=== PATIENT | female | born 1990 | race Caucasian/White ===

== ENCOUNTER 2017-07-02 17:34 | Emergency (ER) | payer BC ==
[2017-07-02 17:38] VITALS: BP 112/73; BMI 34.1
--- NOTE | 2017-07-02 17:50 | DR.GENAD ---
HPI - PCP Primary Care Physician: shirin - HPI Comment HPI Comment: PATIENT TWISTED ANKLE ON HER PORCH AT HOME. DIFFICULTY BEARING WEIGHT. - Complaint/Symptoms Chief Complaint Doctors Comments: RIGHT ANKLE PAIN FOR SEVERAL HOURS DUE TO INJURY. Chief Complaint:: patient steped off her porch today and twisted her right ankle. - Nurses notes reviewed Nurses Notes Review: Yes - Source History Provided: Patient - Mode of Arrival Mode of Arrival: Ambulatory - Timing Onset of Chief Complaint: 07/02/17 Came on: Suddenly - Duration Duration: Constant Duration: Hours - Severity Severity: Moderate PMH - PMH Past Medical History: No Past Surgical History: No - Family History History of Family Medical Conditions: No - Social History Does patient currently use any type of tobacco product: No Have you used tobacco products in the last 12 months: No Type of Tobacco Use: None Does any household member use tobacco: Yes Alcohol Use: Occasionally Do you use any recreational Drugs:: No Lives With: Family Lives Where: Home - infectious screening In the last 2 months have you had wt loss of >10#?: NO Have you had fever, night sweats or hemotysis?: No Have you traveled outside the country in the last 6 months?: No Isolation: Standard ROS - Review of Systems Constitutional: No Symptoms Reported Eyes: No Symptoms Reported ENTM: No Symptoms Reported Respiratoy: No Symptoms Reported Cardiovascular: No Symptoms Reported Gastrointestinal/Abdominal: No Symptoms Reported Genitourinary: No Symptoms Reported Neurological: No Symptoms Reported Musculoskeletal: Right, Ankle Integumentary: No Symptoms Reported Hematologic/Lymphatic: No Symptoms Reported Endocrine: No Symptoms Reported All Other Systems: Reviewed and Negative PE - Vital Signs Vitals: Temperature 98.6 F Pulse Rate 91 Respiratory Rate 16 Blood Pressure 112/73 O2 Sat by Pulse Oximetry 98 - General Limitations: No Limitations General Appearance: Alert - Head Head Exam: Normal Inspection - Eyes Eye exam: Normal Appearance - ENT ENT Exam: Normal External Ear Exam External Ear Exam: Normal External Inspection TM/Canal Exam: Bilateral Normal Nose Exam: Normal Nose Exam Mouth Exam: Normal Inspection Throat Exam: Normal Inspection - Neck Neck Exam: Trachea Midline - Chest Chest Inspection: Symmetric Chest Wall Rise - Respiratory Respiratory Exam: Normal Lung Sounds Bilat Respiratory Exam: Bilateral Clear to Auscultation - Cardiovascular Cardiovascular Exam: Regular Rate, Normal Rhythm, Normal Heart Sounds - Abdominal Exam Abdominal Exam: Normal Inspection - Extremities Extremities Exam: Tenderness (LATERAL MALLEOLUS SWOLLEN AND TENDER. ROM DECREASE.) - Back Back Exam: Normal Inspection - Neurologic Neurological Exam: Alert, Oriented X3 - Psychiatric Psychiatric Exam: Normal Affect, Normal Mood - Skin Skin Exam: Normal Color MDM - Additional Information Additional Information Obtained From: Family - Differential Diagnosis Differential Diagnosis: RIGHT ANKLE FRACTURE, SPRAIN, STRAIN, CONTUSION Course - Treatment Treatment: SEE ORDERS. - Education/Counseling Education/Counseling: Patient, Family, Education Educated On: Diagnosis, Needs for Follow Up ROR - XRAY XRAY Interpreted by: Radiologist XRAY Findings: REPORT DISCUSS WITH PATIENT AND HER HUDBAND. - Diagnosis Discharge Problem: Right ankle sprain Qualifiers: Encounter type: initial encounter Involved ligament of ankle: unspecified ligament Qualified Code(s): S93.401A - Sprain of unspecified ligament of right ankle, initial encounter - Discharge Plan Disposition: 01 HOME, SELF-CARE Condition: Stable Prescriptions: Acetaminophen with Codeine [Tylenol/Codeine #3 300-30 mg] 1 tab PO Q6H PRN #15 tab PRN Reason: Pain Ibuprofen [MOTRIN TAB 800 MG *] 800 mg PO Q8H PRN #30 tab PRN Reason: Pain/Inflammation - Follow ups/Referrals Follow ups/Referrals: TAWNY VARGAS [Primary Care Provider] - 2 days - Instructions Instructions: Acute Ankle Sprain With Phase I Rehab-SportsMed Additional Instructions: RETURN TO ED IF WORSE.
--- NOTE | 2017-07-02 18:12 | RAD ---
HISTORY: Right ankle trauma, right ankle pain and swelling Study: Three-view right ankle Comparison: None Findings: There is lateral malleolar soft tissue swelling. However, no acute fracture dislocation is identified . The visualized talus and calcaneus are unremarkable. The ankle mortise is intact. IMPRESSION: 1. Lateral malleolar soft tissue swelling without acute fracture or dislocation. Reported By:
== END 2017-07-02 18:39 | disposition home or self-care (01) ==
LOC: ER 17:47
DX: S93.401A Sprain of unspecified ligament of right ankle, initial encounter (principal); M79.89 Other specified soft tissue disorders; Y33.XXXA Other specified events, undetermined intent, initial encounter; Y92.9 Unspecified place or not applicable
CPT/HCPCS: 73610; 99282; 99283